=== PATIENT | male | born 2005 | race African-American/Black ===

== ENCOUNTER 2024-01-23 09:55 | Emergency (ER) | payer OTHER ==
--- NOTE | 2024-01-23 11:28 | RAD REPORT ---
EXAMINATION: CT Stone Protocol CLINICAL INDICATION: Male, 18 years old. left flank pain TECHNIQUE: CT abdomen and pelvis was performed, without IV contrast, as per department protocol. Axia l, sagittal and coronal reconstructions were obtained. One or more of the following dose reduction techniques were used: Automated exposure control, adjustment of the mA and kV according to the patien t size, and iterative reconstruction. Unless otherwise specified, incidental findings do not require dedicated imaging follow-up. COMPARISON: No prior exam. FINDINGS: The lack of intravenous contrast limits the sensitivity of this exam for evaluation of solid visceral organs, vascular structures, and retroperitoneum. LOWER CHEST: The visualized lung bases are clear. LIVER: Normal in size and contour. No focal lesion. BILIARY SYSTEM: No suspicious abnormalities. SPLEEN: Normal size. No focal lesion. PANCREAS: No mass, ductal dilation, or beata-pancreatic fluid. ADRENALS: Normal; no mass. KIDNEYS AND URETERS: Normal size and contour. No hydronephrosis. URINARY BLADDER: Normal contour. GASTROINTESTINAL TRACT: No evidence of bowel obstruction, significant free fluid, free air or abscess . APPENDIX: Normal appendix, with a small appendicolith seen at its distal aspect. LYMPH NODES: No lymphadenopathy. MUSCULOSKELETAL: No acute or suspicious osseous abnormality. ADDITIONAL FINDINGS: None. IMPRESSION: No acute or concerning abnormalities in the abdomen or pelvis, with evaluation limited by lack of IV contrast. No evidence of urinary tract calculi or obstruction.
--- NOTE | 2024-01-23 13:11 | RAD REPORT ---
EXAMINATION: TWO VIEW CHEST XR CLINICAL INDICATION: Male, 18 years old. [facility] left anterior chest pain Bed: TECHNIQUE: 2 view radiographs of the chest were performed. COMPARISON: No prior exam. FINDINGS: The lungs are well inflated and clear. No pneumothorax or sizable effusion. The heart is normal in si ze. Mediastinal contours are unremarkable. IMPRESSION: No acute or significant abnormalities.
--- NOTE | 2024-01-23 13:24 | EDPHYS ---
Physician Documentation [facility] Name: King Erik Age: 18 yrs Sex: Male : 2005 Arrival Date: 01/23/2024 Time: 09:55 Bed 23 Private MD: ED Physician Nathaniel Kuhn HPI: 01/22 10:43 This 18 yrs old Black Male presents to ER via Ambulatory with complaints of Flank Pain. rn 10:43 This 18 yrs old Black Male presents to ER via Ambulatory with complaints of Flank Pain. rn 10:43 The patient complains of pain in the Left upper quadrant/flank. The pain does not rn radiate. Onset: The symptoms/episode began/occurred 2 day(s) ago. Modifying factors: The symptoms are alleviated by nothing. the symptoms are aggravated by nothing. Severity of pain: At its worst the pain was mild in the emergency department the pain is unchanged. The patient has not experienced similar symptoms in the past. Patient reports 2 days of left upper quadrant/chest pain. Denies trauma. Does vape. No hemoptysis. Does not feel sick. Denies abdominal pain/vomiting/diarrhea.. Historical: - Allergies: 10:40 No Known Allergies; ss - Home Meds: 10:40 None [Active]; ss - PMHx: 10:40 None; ss - PSHx: 10:40 None; ss - Immunization history:: Client reports having NOT received the Covid vaccine. - Infectious Disease History:: Denies. - Social history:: Smoking status: Patient denies any tobacco usage or history of. - Family history:: not pertinent. - Hospitalizations: : No recent hospitalization is reported. ROS: 10:43 Constitutional: Negative for fever, chills, and weight loss, Cardiovascular: Positive rn for left anterior pleuritic chest pain Respiratory: Negative for shortness of breath, cough, wheezing Abdomen/GI: Negative for abdominal pain/vomiting/diarrhea Back: Negative for injury and pain, MS/Extremity: Negative for injury and deformity, Exam: 10:43 Constitutional: This is a well developed, well nourished patient who is awake, alert, rn and in no acute distress. Actively using phone, sitting comfortably in chair Head/Face: Normocephalic, atraumatic. Chest/axilla: No focal rib tenderness or crepitus Cardiovascular: Regular rate and rhythm. No pulse deficits. Respiratory: Speaking full sentences, unlabored. No pain with deep inspiration Abdomen/GI: Soft, nontender, no peritoneal signs Vital Signs: 10:39 BP 140 / 82; Pulse 70; Resp 14; Temp 98.2(O); Pulse Ox 100% on R/A; Weight 101.15 kg; ss Height 6 ft. 1 in. ; Pain 7/10; 10:39 Body Mass Index 29.42 (101.15 kg, 185.42 cm) - Percentile 94.0 % ss 10:39 Pain Scale: Adult ss MDM: 09:58 Medical Screening Exam initiated rn 13:22 Differential diagnosis: nephrolithiasis, Pleurisy, intra-abdominal problem, chest pain rn related to vaping. Data reviewed: vital signs, nurses notes, radiologic studies, CT scan, plain films, and as a result, I will discharge patient. Counseling: I had a detailed discussion with the patient and/or guardian regarding the historical points, exam findings, and any diagnostic results supporting the discharge/admit diagnosis, radiology results, the need for outpatient follow up, to return to the emergency department if symptoms worsen or persist or if there are any questions or concerns that arise at home. Special discussion: Based on the patient's history, exam, and Dx evaluation, there is no indication for emergent intervention or inpatient Tx. It is understood by the patient/guardian that if the Sx's persist or worsen they need to return immediately for re-evaluation. I discussed with the patient/guardian in detail that at this point there is no indication for admission to the hospital. It is understood, however, that if the symptoms persist or worsen the patient needs to return immediately for re-evaluation. 13:22 ED course: No acute findings on x-ray or CT abdomen pelvis. Most likely pleuritic chest rn pain secondary to vaping. Advised patient to stop vaping and throw away his vape pen. Recommend [id number] anti-inflammatory such as Motrin. Return precautions given and understood.. 01/22 10:16 Order name: XRAY Chest Pa And Lat (2 Views); Complete Time: 13:20 rn 01/22 10:43 Order name: CT Stone Protocol; Complete Time: 13:20 rn Administered Medications: No medications were administered Disposition Summary: 01/23/24 13:24 Discharge Ordered Notes: Location: Home rn Problem: new rn Symptoms: have improved rn Condition: Stable rn Diagnosis - Chest pain, unspecified rn - Pleurisy rn Followup: rn - With: Private Physician - When: As needed - Reason: Recheck today's complaints, Re-evaluation by your physician Discharge Instructions: - Discharge Summary Sheet rn - Nonspecific Chest Pain, Adult rn - Pleurisy rn - E-cigarette or Vaping Use-Associated Lung Injury rn Forms: - Medication Reconciliation Form rn - 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
--- NOTE | 2024-01-23 13:24 | ER ---
Nurse's Notes [facility] Name: King Erik Age: 18 yrs Sex: Male : 2005 Arrival Date: 01/23/2024 Time: 09:55 Bed 23 Private MD: Diagnosis: Chest pain, unspecified;Pleurisy Presentation: 01/22 10:39 Chief complaint: Patient states: LUQ pain that began 2 days ago. Coronavirus screen: ss Client denies travel out of the [place] in the last 14 days. Ebola Screen: Patient denies exposure to infectious person. Patient denies travel to an Ebola-affected area in the 21 days before illness onset. Initial Sepsis Screen: Does the patient meet any 2 criteria? No. Patient's initial sepsis screen is negative. Does the patient have a suspected source of infection? No. Patient's initial sepsis screen is negative. Risk Assessment: Do you want to hurt yourself or someone else? Patient reports no desire to harm self or others. Onset of symptoms was January 21, 2024. 10:39 Method Of Arrival: Ambulatory ss 10:39 Acuity: MARIELA 3 ss Historical: - Allergies: 10:40 No Known Allergies; ss - Home Meds: 10:40 None [Active]; ss - PMHx: 10:40 None; ss - PSHx: 10:40 None; ss - Immunization history:: Client reports having NOT received the Covid vaccine. - Infectious Disease History:: Denies. - Social history:: Smoking status: Patient denies any tobacco usage or history of. - Family history:: not pertinent. - Hospitalizations: : No recent hospitalization is reported. Assessment: 10:10 Reassessment: called pt to triage. Unable to locate patient. ss 10:39 General: Appears in no apparent distress. comfortable, Behavior is calm, cooperative. ss Pain: Complains of pain in left upper quadrant Pain currently is 7 out of 10 on a pain scale. Neuro: Level of Consciousness is awake, alert, obeys commands, Oriented to person, place, time, situation. Respiratory: Airway is patent Respiratory effort is even, unlabored, Respiratory pattern is regular, symmetrical. GI: Patient currently denies nausea. Derm: Skin is intact, is healthy with good turgor, Skin is pink, warm \T\ dry. normal. 13:55 Reassessment: Patient appears in no apparent distress at this time. Patient and/or ss family updated on plan of care and expected duration. Pain level reassessed. Patient is alert, oriented x 3, equal unlabored respirations, skin warm/dry/pink. Vital Signs: 10:39 BP 140 / 82; Pulse 70; Resp 14; Temp 98.2(O); Pulse Ox 100% on R/A; Weight 101.15 kg; ss Height 6 ft. 1 in. ; Pain 7/10; 10:39 Body Mass Index 29.42 (101.15 kg, 185.42 cm) - Percentile 94.0 % ss 10:39 Pain Scale: Adult ss ED Course: 09:57 Patient arrived in ED. mg5 09:58 Nathaniel Kuhn MD is Attending Physician. rn 10:10 Patient moved to radiology ambulatory. rs4 10:30 Patient taken to [facility], Patient moved back from radiology. rs4 10:34 XRAY Chest Pa And Lat (2 Views) In Process Unspecified. EDMS 10:40 Triage completed. ss 10:40 Arm band placed on right wrist. ss 10:54 CT Stone Protocol In Process Unspecified. EDMS 13:54 Rivka Victoria, RN is Primary Nurse. ss 13:55 No provider procedures requiring assistance completed. Patient did not have IV access ss during this emergency room visit. Administered Medications: No medications were administered Outcome: 13:24 Discharge ordered by . rn 13:55 Discharged to home ambulatory, ss 13:55 Condition: good 13:55 Discharge instructions given to patient, Instructed on discharge instructions, follow up and referral plans. Demonstrated understanding of instructions, follow-up care, 13:56 Patient left the ED. ss Signatures: Dispatcher [employer] EDMS Nathaniel Kuhn MD MD rn Blanchard, Shelby, RN RN Stefania Martins 4 Joelle Jiang [facility] [place]
[2024-01-23 14:00] VITALS: BP 140/82; TEMP 98.2; O2SAT 100
== END 2024-01-23 13:56 | disposition home or self-care (01) ==
LOC: ER 09:55
DX: R09.1 Pleurisy (principal)
CPT/HCPCS: 71046; 74176; 76377; 99283